=== PATIENT | female | born 1950 | race African-American/Black ===

== ENCOUNTER 2024-05-03 01:33 | Emergency (ER) | payer MEDICARE, SELFPAY ==
--- NOTE | ~2024-05-03 | XR_ITS ---
Portable chest x-ray Comparison: 11/02/2018 Clinical History: Tube placement Findings: Endotracheal tube in place, tip just above the [place]. There is extensive hazy and interst itial pulmonary disease, right lung worse than left. Cardiomediastinal silhouette is stable. Bones a nd soft tissues are unremarkable, aside from cervicothoracic spinal fixation hardware. Impression: Extensive hazy and interstitial pulmonary disease, right worse than left. Correlate for pulmonary manasa ma versus infection. ET tube in place, as above. Reviewed, dictated and finalized at location M. Impression: Extensive hazy and interstitial pulmonary disease, right worse than left. Corre late for pulmonary edema versus infection. ET tube in place, as above.
--- NOTE | 2024-05-03 01:47 | ECG_ITS ---
Test Date: 2024-05-03 02:09:34 Measurements Intervals [place] Rate: 87 P: 65 SC: 174 QRS: 99 QRSD: 95 T: 110 QT: 347 QTc: 420 Interpretive Statements SINUS RHYTHM RIGHT AXIS DEVIATION POSSIBLE LEFT ATRIAL ENLARGEMENT LOW QRS VOLTAGE IN LIMB LEADS CANNOT R/O SEPTAL INFARCT, AGE INDETERMINATE CONSIDER HIGH LATERAL INFARCT, AGE INDETERMINATE ST-T WAVE ABNORMALITY IN ANTEROLATERAL LEADS- CONSIDER ISCHEMIA ABNORMAL ECG No previous ECG available for comparison Electronically Signed On 05-03-2024 07:48:33 CDT by Justin Gomez D.O.
--- NOTE | 2024-05-03 02:54 | ED.GENADULT ---
HPI - General Adult General Chief complaint: Cardiac Arrest/CPR Stated complaint: POST CARDIAC ARREST, ROSC IN FIELD Time Seen by Provider: 05/03/24 01:47 History of Present Illness HPI narrative: This is a 73-year-old female presenting in cardiac arrest. Per EMS the patient collapsed at the group home. They performed approximately 15 minutes of CPR before obtaining ROSC. While they were transporting her she went into cardiac arrest again and CPR was performed. Related Data Allergies Allergy/AdvReac Type Severity Reaction Status Date / Time No Known Allergies Allergy Unverified 11/28/18 14:32 [facility] Family History Family History Sibling Family history of malignant neoplasm Social History Social History Smoking status: Light tobacco smoker Alcohol intake: never Exam Narrative: APPEARANCE: Nonresponsive Head: atraumatic. EYES: Fixed dilated NOSE: Atraumatic NECK: Trachea midline RESPIRATORY: Diffuse rhonchi CARDIOVASCULAR: Pulseless ABDOMINAL: Non-distended MUSCULOSKELETAl: No obvious deformities NEURO: Unresponsive SKIN:: Cool to touch PSYCHIATRIC: Unresponsive Procedures Arterial Line Arterial line #1: Date of Arterial Line: 05/03/24 Arterial Line Location: radial and left Perfomed Emergently - Given emergent patient conditions, temporal constraints may have precluded informed consent: Yes Time Out Performed: No Size (Gauge): 18 Technique Used: guide wire technique Post-Procedure: line sutured into place and dry sterile dressing placed Patient Tolerated Procedure: well Complications: none Central Line Placement Left Femoral: Central Line Date: 05/03/24 Performed Emergently - Given emergent patient condition, temporal constraints may have precluded informed consent.: Yes Time Out Performed: No Patient Placed on Monitor/Pulse Ox: Yes Emergently Placed, Full Sterile: prep not done Technique: US-Guided Ultrasound Used for Placement: Yes Central Line Lumen Inserted: triple Post Procedure: good blood return and all ports aspirated, flushed, capped Patient Tolerated Procedure: well Complications: none Medical Decision Making MDM Narrative Medical decision making narrative: -Course: 73-year-old female presenting in cardiac arrest. ACLS was followed and we obtained ROSC multiple times. EKG without stemi. Patient was intubated, arterial line and central line were placed. Cardiothoracic echo showed a globally dilated heart with minimal squeeze. She was placed on escalating doses of norepinephrine epinephrine and vasopressin still unable to maintain her blood pressures. Ventilator settings were also being increased and patent was suctioned in an attempt to improve oxygenation without success. After over an hour of intensive care including multiple rounds of CPR the patient's son arrived. At that time she lost pulses again and 2:48 the son decided to stop resuscitative efforts. Time declared at 2:59 a.m. Discharge Plan Discharge Clinical Impression: Cardiac arrest Patient Disposition: Condition: Follow-up/Referrals: Eben Chinchilla, [Primary Care Provider] -
--- NOTE | 2024-05-03 06:17 | PC.NURSE ---
0133 Patient arrives with CPR in progress by EMS. Patient had Igel in place. Upon transfer from EMS stretcher to ED stretcher, patient had pulse check of PEA. CPR was resumed and patient was being bagged with BVM by RT. 0135 pulse check, PEA, cpr resumed, bagging by RT continued. 0137 ERP placed 7.5 ET tube, 23 at the lip, secured with tube pat, visible chest rise and fall noted, positive color change from co2 monitor, bilateral breath sounds heard by ERP. 1 dose of epi IVP given. 0138 pulse check, PEA, cpr resumed, bagging ventilations continued. 0140 epi given. 0141 pulse check, ERP used US to visualize heart. 0144 ERP noted normalized cardiac activity, patient had obtained ROSC, continued bagging ventilations. 0151 Code resumed, PEA, cpr resumed with bagging ventilations. VORB to start norepi at 10 in IO that was placed by EMS in left humerus captain cannery tender. 0153 epi given. 0154 ERP placed US IV in left forearm, norepi switched from IO to IV. 0155 Patient obtained ROSC. RT continued bagging ventilations. 0203 OG placed by ERP, spontaneous return. VORB to increase norepi to 20. 0204 Code resumed, PEA, cpr resumed with bagging ventilations. 0206 epi given. 0207 ROSC obtained, with continued bagging ventilations. VORB to increase norepi to 25. 0216 VORB to increase norepi to 30. Code resumed, PEA, cpr resumed with bagging ventilations. 0218 ROSC obtained with continued bagging ventilations. 0220 Patients son Chaz notified and informed he is on the way. VORB to start epi drip at 3. 0225 Art line placed by ERP and patient placed on vent. 0231 VORB to increase patients epi drip to 5 and to start 1L NS bolus. 0238 ERP placed central line in left groin. 0239 Vasopressin drip started at 1.2ml/hr. VORB to increase epi drip to 10. 0243 Code resumed, PEA, cpr resumed with bagging ventilations done by RT. 0245 Patients son at bedside speaking with ERP. Pulse check, PEA, cpr resumed. 0247 pulse check, PEA, cpr resumed. 0248 Patient son Chaz, states to stop code, to cease cpr and ventilation. 0249 Patients drips stopped, disconnected from vent. Patient son requests time alone with patient. ERP calls TOD at [phone].
== END 2024-05-03 02:59 | disposition expired ==
PROVIDERS: Emergency Provider Emergency Medicine; PCP Internal Medicine
DX: I46.9 Cardiac arrest, cause unspecified (principal)
CPT/HCPCS: 31500; 36556; 92950; 93005; 96365; 96375; 99285; C1751; J0171; J7030; J7120